=== PATIENT | male | born 1965 | race Caucasian/White ===

== ENCOUNTER 2017-03-04 15:12 | Outpatient (CLI) | payer OTHER | END 2017-03-04 15:13 | disposition short-term general hospital (02) | LOC: EMS 15:12 | PROVIDERS: ATTEND Surgery | DX: S68.127A Partial traumatic metacarpophalangeal amputation of left little finger, initial encounter (principal); W31.89XA Contact with other specified machinery, initial encounter; Y92.009 Unspecified place in unspecified non-institutional (private) residence as the place of occurrence of the external cause | CPT/HCPCS: A0170; A0425; A0429 ==

== ENCOUNTER 2017-12-08 10:57 | Outpatient (CLI) | payer OTHER ==
--- NOTE | 2017-12-08 19:50 | XRAY Report ---
COMPLETE LUMBAR SPINE: 12/08/2017 CLINICAL INDICATION: Back pain AP, lateral, bilateral oblique, coned down views of the lumbar spine demonstrate mild degenerative disk and facet disease. There is an anterior wedge compression deformity of T12, with approximately 50% anterior height loss. No other fracture is appreciated. The bowel gas pattern is normal. IMPRESSION: ANTERIOR WEDGE COMPRESSION DEFORMITY OF T12, WITH APPROXIMATELY 50 % ANTERIOR HEIGHT LOSS. NO EVIDENCE OF LUMBAR SPINE FRACTURE. TD: 12/08/2017 19:49 [facility]
== END 2017-12-08 10:58 | disposition home or self-care (01) ==
LOC: DI.S 10:57
PROVIDERS: ATTEND Nurse Practitioner Family
DX: M54.5 Low back pain (principal); M43.8X4 Other specified deforming dorsopathies, thoracic region
CPT/HCPCS: 72110

== ENCOUNTER 2021-06-30 08:00 | Outpatient (CLI) | payer OTHER ==
--- NOTE | 2021-06-30 09:39 | XRAY Report ---
PROCEDURE: Elbow 3 View LT INDICATIONS: SPRAIN OF LEFT ELBOW TECHNIQUE: 3 views of the elbow were acquired. COMPARISON: None. FINDINGS: Bones: Medial and lateral ossific lesions are seen, which may reflect calcific tendinopathy. Small o lecranon enthesophyte. Minimal angulated appearance of the radial head cortex, which may reflect nond isplaced fracture versus osteophytosis. No suspicious bony lesions. Soft tissues: No elbow joint effusion. No suspicious soft tissue calcifications. IMPRESSION: 1. Minimal angulated appearance of the radial head cortex, which may reflect osteophytosis. No apprec iable joint effusion to suggest an occult fracture. Reviewed by: Arnulfo Damico MD on 06/30/2021 9:38 AM PST Approved by: Arnulfo Damico MD on 06/30/2021 9:38 AM PST Station ID: [id number]
== END 2021-06-30 23:59 | disposition home or self-care (01) ==
LOC: DI.S 08:00
PROVIDERS: ATTEND Emergency Medicine
DX: S53.402A Unspecified sprain of left elbow, initial encounter (principal)

== ENCOUNTER 2023-08-31 08:00 | Outpatient (CLI) | payer OTHER ==
--- NOTE | 2023-08-31 21:09 | XRAY Report ---
PROCEDURE: Hand 3+V LT INDICATIONS: LEFT HAND FBO TECHNIQUE: 3 views of the hand(s) acquired. COMPARISON: None. 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 No acute fracture or dislocation. No suspicio us bony lesions. Soft tissues: Small calcifications are noted adjacent to third and fourth digits to. Linear density is seen in soft tissue over volar aspect of third proximal phalangeal shaft. No other radiopaque fore ign body or soft tissue calcification is seen. IMPRESSION: Prior amputation of and third through fifth fingers as described above suggest clinical correlation. Small calcifications in third and fourth finger stump and over volar aspect of third proximal phalang eal shaft. No other soft tissue calcification or foreign body is seen. No acute fracture or dislocati on. Reviewed by: Mariusz Gloria MD on 08/31/2023 9:07 PM PST Approved by: Mariusz Gloria MD on 08/31/2023 9:07 PM PST Station ID: [id number]
== END 2023-08-31 23:59 | disposition home or self-care (01) ==
LOC: DI.S 08:00
PROVIDERS: ATTEND Physician Assistant
DX: S61.422A Laceration with foreign body of left hand, initial encounter (principal); Z89.022 Acquired absence of left finger(s)

== ENCOUNTER 2024-02-26 08:00 | Outpatient (CLI) | payer OTHER ==
--- NOTE | 2024-02-26 16:20 | XRAY Report ---
PROCEDURE: Hand 3+V RT INDICATIONS: CONTUSION OF RIGHT HAND TECHNIQUE: 3 views of the hand(s) acquired. COMPARISON: None. FINDINGS: Bones: No fractures or dislocations. No suspicious bony lesions. Soft tissues: No suspicious soft tissue calcifications or masses. IMPRESSION: No visualized acute fracture or dislocation. However, occult injury cannot be excluded. Recommend yogi rt interval imaging follow-up in 7-10 days as clinically indicated for additional evaluation. Reviewed by: Pita Damico MD on 02/26/2024 4:19 PM PDT Approved by: Pita Damico MD on 02/26/2024 4:19 PM PDT Station ID: [id number]
== END 2024-02-26 23:59 | disposition home or self-care (01) ==
LOC: DI.S 08:00
PROVIDERS: ATTEND Emergency Medicine
DX: S60.221A Contusion of right hand, initial encounter (principal)